=== PATIENT | female | born 1995 | race Two or more races ===

== ENCOUNTER 2025-05-05 08:44 | Day surgery (SDC) | payer BC ==
[2025-05-05 09:32] VITALS: BMI 29.7
[2025-05-05] MEDS ORDERED: hydrALAZINE 20 MG/ML VIAL SLOW IVP PRN (09:55)
[2025-05-05] MEDS ORDERED: Famotidine 20 MG TAB PO SCH (10:15)
== END 2025-05-05 12:40 | disposition home or self-care (01) ==
LOC: CSHLD/OP 08:44
PROVIDERS: ATTEND Student in an Organized Health Care Education/Training Program
DX: O99.891 Other specified diseases and conditions complicating pregnancy (principal); M25.551 Pain in right hip; O99.613 Diseases of the digestive system complicating pregnancy, third trimester; K21.9 Gastro-esophageal reflux disease without esophagitis; Z3A.38 38 weeks gestation of pregnancy
CPT/HCPCS: 99283

== ENCOUNTER 2025-05-10 06:13 | Inpatient (IN) | payer BC ==
[2025-05-10 07:29] VITALS: BMI 29.7
[2025-05-10] MEDS ORDERED: Diphenoxylate HCl/Atropine Tablet PO PRN (07:31)
[2025-05-10] MEDS ORDERED: Oxytocin 30 units/NS 500 ML 500 ML IV SCH (07:31)
[2025-05-10] MEDS ORDERED: hydrALAZINE 20 MG/ML VIAL SLOW IVP PRN ×2 (07:31→19:59)
[2025-05-10] MEDS ORDERED: Ondansetron PF 4 MG/2 ML Vial IVP PRN ×3 (07:31→19:59)
[2025-05-10] MEDS ORDERED: Lidocaine 1% (PF) 30 ML VIAL SC PRN (07:31)
[2025-05-10] MEDS ORDERED: Methylergonovine 0.2 MG/ML VIAL IM PRN (07:31)
[2025-05-10] MEDS ORDERED: Acetaminophen 500 MG TAB PO PRN (07:31)
[2025-05-10] MEDS ORDERED: Carboprost 250 MCG/ML AMP IM PRN (07:31)
[2025-05-10] MEDS ORDERED: HYDROcodone/Acetaminophen 5/325 mg Tablet PO PRN (07:31)
[2025-05-10] MEDS ORDERED: Ibuprofen 800 MG TAB PO PRN (07:31)
[2025-05-10 07:52] LABS: Hematocrit 34.4 % (34.9-44.5); Hemoglobin 11.2 g/dL (12.0-15.5); Mean Corpuscular Hemoglobin 28.4 pg (27.0-33.0); Mean Corpuscular Volume 87.3 fL (81.6-98.3); Platelet Count 227 10x3/uL (150-450); Red Blood Cell (RBC) Count 3.94 10x6/uL (3.90-5.03); White Blood Cell (WBC) Count 9.20 10x3/uL (3.5-10.5)
[2025-05-10] MEDS: Oxytocin 30 units/NS 500 ML 500 ML IV SCH (07:55)
[2025-05-10] MEDS ORDERED: Bupivacaine 0.25% HCL 30 ML VIAL ONE (08:00)
[2025-05-10 08:41] LABS: Hep B Surf Ag - L&D Non-Reactive S/CO (NonReactive)
[2025-05-10 08:42] LABS: Syphilis Antibody Index 0.11 S/CO (<1.00 Non-Reactive)
[2025-05-10] MEDS ORDERED: fentaNYL/Ropivacaine Epidural 100 ML ONE (09:28)
[2025-05-10] MEDS: fentaNYL 2 mcg/Ropivacaine 0.2% Epidural 100 ML CADD EPIDURAL SCH (09:50)
[2025-05-10] MEDS ORDERED: diphenhydrAMINE 50 MG/ML VIAL IVP PRN (10:06)
[2025-05-10] MEDS ORDERED: Acetaminophen 325 MG TAB PO PRN (10:06)
[2025-05-10] MEDS ORDERED: Communication Order-Pharmacy FS SCH (10:15)
[2025-05-10] MEDS ORDERED: Tranexamic Acid 1,000 MG/10 ML VIAL ONE (17:12)
[2025-05-10] MEDS ORDERED: Carboprost 250 MCG/ML AMP ONE (17:13)
[2025-05-10] MEDS ORDERED: Methylergonovine 0.2 MG/ML VIAL ONE (17:13)
[2025-05-10] MEDS: Oxytocin 30 units/NS 500 ML 500 ML ONE (17:40)
[2025-05-10 17:42] LABS: Analyzer IN Cardio CS NICU; Critical Notified By: clumpkins rt
[2025-05-10 17:44] LABS: Analyzer IN Cardio CS NICU; Critical Notified By: clumpkins rt; pH (Cord, venous) 7.356 (7.250-7.350)
[2025-05-10] MEDS ORDERED: Bisacodyl 10 MG SUPP PR PRN (19:59)
[2025-05-10] MEDS ORDERED: Boostrix 0.5 ML (Tdap) VIAL (>/=7 yrs of age) IM ONE (19:59)
[2025-05-10] MEDS ORDERED: diphenhydrAMINE 25 MG CAP PO PRN (19:59)
[2025-05-10] MEDS ORDERED: Preparation H Ointment 28 GM TUBE PR PRN (19:59)
[2025-05-10] MEDS ORDERED: Lanolin Ointment 7 GM TUBE TOP PRN (19:59)
[2025-05-10] MEDS: Ibuprofen 800 MG TAB PO SCH (20:11)
[2025-05-10] MEDS: HYDROcodone/Acetaminophen 5/325 mg Tablet PO PRN (21:30)
[2025-05-11 06:10] LABS: Hematocrit 27.6 % (34.9-44.5); Hemoglobin 9.1 g/dL (12.0-15.5)
[2025-05-11] MEDS: Ferrous Sulfate 325 MG TAB PO SCH (08:26)
[2025-05-11] MEDS: Benzocaine-Menthol 82.5 ML CAN TOP PRN (09:35)
[2025-05-11] MEDS: Milk Of Magnesia 30 ML UDCUP PO PRN (09:36)
[2025-05-11] MEDS: HYDROcodone/Acetaminophen 5/325 mg Tablet PO PRN (12:04)
[2025-05-12 22:42] VITALS: BP 126/62; TEMP 98
== END 2025-05-12 15:18 | disposition home or self-care (01) | DRG 807 ==
LOC: CSHLD 06:13 → EEVIPCON 06:13 → CSHPP 20:20
PROVIDERS: ADMIT Student in an Organized Health Care Education/Training Program; ATTEND Student in an Organized Health Care Education/Training Program
PROC: 10E0XZZ Delivery of Products of Conception, External Approach (ICD-10-PCS; principal; 2025-05-10)
DX: O70.20 Third degree perineal laceration during delivery, unspecified (principal); Z37.0 Single live birth; Z3A.39 39 weeks gestation of pregnancy
CPT/HCPCS: 36415; 51701; 51702; 82805; 85014; 85018; 85027; 86780; 86850; 86900; 86901; 87340; J0665; J2590